=== PATIENT | male | born 2005 | race Caucasian/White ===

== ENCOUNTER 2023-01-16 09:55 | Emergency (ER) | payer OTHER ==
[2023-01-16] MEDS ORDERED: IBUPROFEN 600 MG TABLET (FP) PO ONE ×2 (10:06→10:16)
[2023-01-16 10:09] VITALS: BP 121/70; PULSE 97; RESP 18; TEMP 98; BMI 31.1
== END 2023-01-16 10:55 | disposition home or self-care (01) ==
LOC: FER 09:55
DX: M25.561 Pain in right knee (principal); W18.40XA Slipping, tripping and stumbling without falling, unspecified, initial encounter
CPT/HCPCS: 73552-TC-RT-FY; 73562-TC-RT-FY; 73590-TC-RT-FY; 99284-25